=== PATIENT | female | born 1985 | race Two or more races ===

== ENCOUNTER 2017-06-13 13:09 | Emergency (ER) | payer SELFPAY ==
[2017-06-13 14:06] LABS: BASOPHILS # (AUTO) 0.1 10^3/uL (0.0-0.1); BASOPHILS % (AUTO) 0.6 %; EOSINOPHILS # (AUTO) 0.1 10^3/uL (0.0-0.7); EOSINOPHILS % (AUTO) 0.7 %; HGB - HEMOGLOBIN 13.3 g/dL (12.0-16.0); LYMPHOCYTES # (AUTO) 1.9 10^3/uL (1.5-3.5); LYMPHOCYTES % (AUTO) 15.8 %; MEAN CORPUSCULAR HGB CONC 34.5 g/dL (32.0-36.0); MEAN PLATELET VOLUME 8.2 fL (7.9-10.8); MONOCYTES # (AUTO) 0.4 10^3/uL (0.0-1.0); MONOCYTES % (AUTO) 3.5 %; NEUTROPHILS # (AUTO) 9.5 10^3/uL (1.5-6.6); NEUTROPHILS % (AUTO) 79.4 %; PLT - PLATELET COUNT 268 10^3/uL (130-450); RED BLOOD COUNT 4.44 10^6/uL (4.20-5.40); RED CELL DISTRIBUTION WIDTH 12.7 % (12.0-15.0); WHITE BLOOD COUNT 11.9 x10^3/uL (4.8-10.8)
[2017-06-13 14:13] LABS: BILIRUBIN,URINE NEGATIVE (NEGATIVE); GLUCOSE, URINE (UA) NEGATIVE (NEGATIVE); KETONES,URINE (UA) TRACE mg/dL (NEGATIVE); LEUKOCYTE ESTERASE, URINE NEGATIVE (NEGATIVE); NITRITE,URINE NEGATIVE (NEGATIVE); OCCULT BLOOD,URINE NEGATIVE (NEGATIVE); PROTEIN,URINE NEGATIVE (NEGATIVE); UROBILINOGEN,URINE 0.2 (NORMAL) E.U./dL (NORMAL)
[2017-06-13 14:15] LABS: CLARITY,URINE CLEAR (CLEAR)
[2017-06-13 14:16] LABS: HCG UR QUAL NEGATIVE
[2017-06-13 14:16] LABS: ALBUMIN 4.8 g/dL (3.2-5.5); ALBUMIN/GLOBULIN RATIO 1.5 (1.0-2.2); BILIRUBIN,TOTAL 0.9 mg/dL (0.2-1.0); CALCIUM 9.4 mg/dL (8.5-10.3); CREATININE 0.6 mg/dL (0.4-1.0)
[2017-06-13] MEDS ORDERED: ONDANSETRON ODT 4 MG TABLET TL STA (15:04)
[2017-06-13] MEDS ORDERED: FAMOTIDINE 20 MG TABLET PO STA (15:05)
--- NOTE | 2017-06-13 15:08 | ED Physician Documentation ---
History of Present Illness - Stated complaint Stated Complaint: FEMALE - Chief complaint Chief Complaint: Abd Pain - Additonal information Additional information: hx from pt 32 f pshx appy approx 1 week of nausea and vomiting, abd feels bloated and bubbly, diff eating , no diarrhea, had eith vag or rectal blood clot 2 days ago none since. LMP 2 weeks ago, no bad food except garlic whcih she does not tolerate well, no sick contacts Review of Systems Constitutional: denies: Fever, Chills Cardiac: denies: Chest pain / pressure Respiratory: denies: Dyspnea, Cough GI: reports: Abdominal Pain, Nausea, Vomiting, Bloody / black stool (maybe 2 weeks ago) : reports: LMP (2 weeks ago), Vaginal bleeding (maybe 2 d ago) Neurologic: reports: Generalized weakness PD PAST MEDICAL HISTORY - Past Medical History Past Medical History: No - Past Surgical History Past Surgical History: Yes General: Appendectomy - Present Medications Home Medications: Ambulatory Orders Medication Instructions Recorded Confirmed Ondansetron Odt [Zofran] 4 mg TL Q6H PRN #10 tablet 06/13/17 raNITIdine [Zantac] 150 mg PO BID #60 tablet 06/13/17 - Allergies Allergies/Adverse Reactions: Allergies Allergy/AdvReac Type Severity Reaction Status Date / Time nickel Allergy Rash Verified 06/13/17 13:19 - Social History Does the pt smoke?: Yes Smoking Status: Current every day smoker Does the pt drink ETOH?: Yes ETOH Use: Wine, Beer, Liquor Does the pt have substance abuse?: No - Immunizations Immunizations are current?: No - POLST Patient has POLST: No PD ED PE NORMAL - Vitals Vital signs reviewed: Yes - Cardiac Cardiac: RRR - Respiratory Respiratory: No respiratory distress, Clear bilaterally - Abdomen Abdomen: Soft, Other (+ upper abd TTP epigastric and just right of midline + murphys) - Female Female : Deferred (no pelvic pain and no bleeding now) - Derm Derm: Normal color - Neuro Neuro: Alert and oriented X 3 Results - Vitals Vitals: Vital Signs - 24 hr 06/13/17 06/13/17 13:19 16:12 Temperature 36.4 C L Heart Rate 77 74 Respiratory 18 18 Rate Blood Pressure 101/65 114/77 O2 Saturation 100 99 Oxygen O2 Source Room air - Labs Labs: Laboratory Tests 06/13/17 06/13/17 06/13/17 13:56 13:56 14:04 WBC 11.9 H RBC 4.44 Hgb 13.3 Hct 38.6 MCV 87.0 MCH 30.0 MCHC 34.5 RDW 12.7 Plt Count 268 MPV 8.2 Neut # 9.5 H Lymph # 1.9 [place] # 0.4 Eos # 0.1 Baso # 0.1 Absolute Nucleated RBC 0.00 Nucleated RBC % 0.0 Sodium 135 Potassium 3.6 Chloride 101 Carbon Dioxide 24 Anion Gap 10.0 BUN 10 Creatinine 0.6 Estimated GFR (MDRD) 115 Glucose 92 Calcium 9.4 Total Bilirubin 0.9 AST 21 ALT 20 Alkaline Phosphatase 60 Total Protein 8.0 Albumin 4.8 Globulin 3.2 Albumin/Globulin Ratio 1.5 Lipase 17 L Urine Color YELLOW Urine Clarity CLEAR Urine pH 6.0 Ur Specific [place] 1.025 Urine Protein NEGATIVE Urine Glucose (UA) NEGATIVE Urine Ketones TRACE Urine Occult Blood NEGATIVE Urine Nitrite NEGATIVE Urine Bilirubin NEGATIVE Urine Urobilinogen 0.2 (NORMAL) Ur Leukocyte Esterase NEGATIVE Ur Microscopic Review NOT INDICATED Urine Culture Comments NOT INDICATED Urine HCG, Qual NEGATIVE - Rads (name of study) sono Radiology: See rad report (neg) PD MEDICAL DECISION MAKING - ED course ED course: pt better with zofran and pepecid nl labs, neg HCG, neg abd sono, no GI/ bleeding today and no pelvic pain Departure - Departure Disposition: 01 Home, Self Care Clinical Impression: Abdominal pain Qualifiers: Abdominal location: upper abdomen, unspecified Qualified Code(s): R10.10 - Upper abdominal pain, unspecified Vomiting Qualifiers: Vomiting type: unspecified Vomiting Intractability: non-intractable Nausea presence: unspecified Qualified Code(s): R11.10 - Vomiting, unspecified Condition: Good Instructions: ED Abdominal Pain Unkn Cause Prescriptions: Ondansetron Odt [Zofran] 4 mg TL Q6H PRN #10 tablet PRN Reason: Nausea / Vomiting raNITIdine [Zantac] 150 mg PO BID #60 tablet Comments: Your labs and ultrasound were all fine. There is no evidence of gallstones/infection, kidney stones/infection, pancreas inflammation, or internal bleeding. This may be due to a stomach virus or food intolerance (such as the garlic you ate) But given the reassuring work up and since you are feeling better, I think it is safe for your to go home with medications for the symptoms. Please follow up with your PMD for a recheck if the symptoms persist - abdominal problems can be very difficult to diagnose at times and often serial exams over time lead to a diagnosis not initially apparent Return to the ER if worse
[2017-06-13 16:12] VITALS: BP 114/77
--- NOTE | 2017-06-13 16:15 | Ultrasound Preliminary Report ---
Exam: US ABDOMEN COMPLETE IMPRESSION: Normal abdomen ultrasound. [facility] SITE ID: [id number]
--- NOTE | 2017-06-13 16:21 | Ultrasound Report ---
EXAM: ABDOMEN ULTRASOUND EXAM DATE: 06/13/2017 03:56 PM. CLINICAL HISTORY: Abdominal pain. Nausea, vomiting. COMPARISON: None. TECHNIQUE: Real-time scanning was performed with static images obtained. FINDINGS: Liver: Normal in size and echotexture. 16.7 cm. Main portal vein flow: Hepatopetal. Gallbladder: Normal. No stones, wall thickening, or sonographic Torres's sign. Biliary System: Common bile duct measures 4.6 mm. No intrahepatic or extrahepatic ductal dilatation. Pancreas: Visualized portion is unremarkable. Kidneys: Right: 10.2 cm longitudinally. Normal. No contour-deforming mass, stones, or hydronephrosis. Left: 10.3 cm longitudinally. Normal. No contour-deforming mass, stones, or hydronephrosis. Spleen: 8.6 cm. Normal in size and echotexture. Aorta and Inferior Vena Cava: Unremarkable. Other: None. IMPRESSION: Normal abdomen ultrasound. [facility] Referring Provider Line: [phone] SITE ID: [id number]
== END 2017-06-13 17:44 | disposition home or self-care (01) ==
LOC: ED 13:09
DX: R10.13 Epigastric pain (principal); R11.2 Nausea with vomiting, unspecified; F17.200 Nicotine dependence, unspecified, uncomplicated
CPT/HCPCS: 36415; 76700; 80053; 81003; 81025; 83690; 85025; 99283; 99284; A9270; Q0162; 81001; 87086